=== PATIENT | male | born 1995 | race Two or more races ===

== ENCOUNTER 2021-01-26 22:30 | Emergency (ER) | payer BC ==
[~2021-01-26] VITALS: Ht 180.3 cm; Wt 108.9 kg
[2021-01-27 01:23] VITALS: BP 147/81
== END 2021-01-27 01:33 | disposition home or self-care (01) ==
LOC: ER 22:39
DX: R19.09 Other intra-abdominal and pelvic swelling, mass and lump (principal); R10.2 Pelvic and perineal pain

== ENCOUNTER 2021-01-30 14:29 | Emergency (ER) | payer BC, MEDICAID ==
[~2021-01-30] VITALS: Ht 180.3 cm; Wt 108.9 kg
[2021-01-30 15:06] VITALS: BP 110/60
[2021-01-30] MEDS ORDERED: cefTRIAXone SOD 1,000 MG VL IM ONE (15:45)
[2021-01-30] MEDS ORDERED: KETOROLAC TROMETH 60MG/2ML VIAL IM ONE (15:45)
== END 2021-01-30 16:32 | disposition home or self-care (01) ==
LOC: ER 14:29
DX: L03.317 Cellulitis of buttock (principal)
CPT/HCPCS: 96372; 99284; J0696; J1885

== ENCOUNTER 2021-02-06 14:58 | Emergency (ER) | payer MEDICAID ==
[~2021-02-06] VITALS: Ht 180.3 cm; Wt 99.8 kg
[2021-02-06 15:12] VITALS: BP 121/70
== END 2021-02-06 16:49 | disposition home or self-care (01) ==
LOC: ER 14:58
DX: L08.89 Other specified local infections of the skin and subcutaneous tissue (principal); Z48.01 Encounter for change or removal of surgical wound dressing

== ENCOUNTER 2021-02-20 14:28 | Emergency (ER) | payer MEDICAID ==
[~2021-02-20] VITALS: Ht 180.3 cm; Wt 117.9 kg
[2021-02-20 14:32] VITALS: BP 105/68
== END 2021-02-20 16:19 | disposition home or self-care (01) ==
LOC: ER 14:28
DX: L03.317 Cellulitis of buttock (principal); Z48.01 Encounter for change or removal of surgical wound dressing; Z76.0 Encounter for issue of repeat prescription

== ENCOUNTER 2022-03-16 14:46 | Emergency (ER) | payer SELFPAY ==
[~2022-03-16] VITALS: Ht 180.3 cm; Wt 108.0 kg
[2022-03-16 14:47] VITALS: BP 104/67
[2022-03-16] MEDS ORDERED: LIDOCAINE 1%HCL (LOCAL ANESTH) 10 ML MDV ONE (18:24)
[2022-03-16] MEDS ORDERED: LIDOCAINE 1% HCL (LOCAL ANESTH.) INJ 20ML MDV ID ONE (18:30)
[2022-03-16] MEDS ORDERED: AMOX500T86 PO (18:48)
== END 2022-03-16 19:22 | disposition left against medical advice (07) ==
LOC: ER 14:46
DX: L02.31 Cutaneous abscess of buttock (principal)
CPT/HCPCS: 10060; 99283; J2001